=== PATIENT | male | born 2000 | race Two or more races ===

== ENCOUNTER 2022-05-01 21:05 | Emergency (ER) | payer MEDICAID, OTHER ==
[~2022-05-01] VITALS: Ht 182.9 cm; Wt 89.8 kg
--- NOTE | 2022-05-01 21:55 | NUR ---
Manoj portillo in [facility] - 05/02/22 at 0002 by LEXUS XRAY AT PT'S BEDSIDE
--- NOTE | 2022-05-01 22:30 | NUR ---
BIBS FOR C/O L POSTERIOR HEEL PAIN S/P INJURY AT BASKETBALL. PT A/OX4. RESP EVEN AND NON LABORED ON R/A; TOLERATING WELL. SAFETY MEASURES IN PLACE.
[2022-05-02] MEDS ORDERED: NABU-141 PO (00:17)
--- NOTE | 2022-05-02 00:26 | NUR ---
LINA WRAP APPLIED TO PT'S LEFT ANKLE. & CRUTCHES GIVEN . PT VERBALIZED UNDERSTANDING
--- NOTE | 2022-05-02 00:33 | NUR ---
Patient discharged to home in stable condition. Written and verbal after care instructions given. Patient verbalizes understanding of instruction. PT ambulatory with a steady gait with crutches
[2022-05-02 00:34] VITALS: BP 148/92
== END 2022-05-02 00:34 | disposition home or self-care (01) ==
LOC: ER 21:12
DX: S93.402A Sprain of unspecified ligament of left ankle, initial encounter (principal); X58.XXXA Exposure to other specified factors, initial encounter; Y93.67 Activity, basketball; Y92.89 Other specified places as the place of occurrence of the external cause; Y99.8 Other external cause status
CPT/HCPCS: 73610-TC; 73630-TC